=== PATIENT | female | born 1970 | race African-American/Black ===

== ENCOUNTER 2022-09-28 19:23 | Emergency (ER) | payer BC ==
[2022-09-28] MEDS ORDERED: Ketorolac Tromethamine 60 MG/2 ML VIAL ONE (20:26)
== END 2022-09-28 21:46 | disposition home or self-care (01) ==
LOC: MADERS 19:23
DX: R68.84 Jaw pain (principal)
CPT/HCPCS: 70110; 96372; J1885

== ENCOUNTER 2023-11-01 12:40 | Emergency (ER) | payer BC, OTHER ==
[2023-11-01] MEDS ORDERED: Mag-Al Plus 1200/1200/120 MG (30 mL) UDCUP ONE (13:16)
[2023-11-01] MEDS ORDERED: Lidocaine 2% Viscous 100 ML BOTTLE ONE (13:18)
== END 2023-11-01 13:55 | disposition home or self-care (01) ==
LOC: MADERS 12:40
DX: J00 Acute nasopharyngitis [common cold] (principal); K21.9 Gastro-esophageal reflux disease without esophagitis
CPT/HCPCS: 71046; 93005